=== PATIENT | male | born 2000 | race Caucasian/White ===

== ENCOUNTER 2020-04-04 00:34 | Emergency (ER) | payer OTHER ==
[~2020-04-04] VITALS: Ht 185.4 cm; Wt 70.3 kg
[~2020-04-04 00:34] MED LIST: CEPH500 PO; CODGUAEL PO
[2020-04-04] MEDS ORDERED: CYCL10 PO (02:18)
[2020-04-04] MEDS ORDERED: OXYC5 PO (02:18)
== END 2020-04-04 02:39 | disposition home or self-care (01) ==
LOC: ER 00:34
DX: S16.1XXA Strain of muscle, fascia and tendon at neck level, initial encounter (principal); V40.5XXA Car driver injured in collision with pedestrian or animal in traffic accident, initial encounter; V43.52XA Car driver injured in collision with other type car in traffic accident, initial encounter; Y92.410 Unspecified street and highway as the place of occurrence of the external cause
CPT/HCPCS: 72040; 99284-25